=== PATIENT | male | born 1980 | race Caucasian/White ===

== ENCOUNTER 2020-09-04 08:09 | Day surgery (SDC) | payer BC ==
[2020-08-27 16:23] LABS: BASOPHILS % (AUTO) 0.3 % (0-1); EOSINOPHILS # (AUTO) 0.2 X10'3 (0-0.9); LYMPHOCYTES # (AUTO) 2.3 X10'3 (1.1-4.8); LYMPHOCYTES % (AUTO) 29.2 % (21-51); MEAN CORPUSCULAR HGB CONC 33.8 g/dL (33.0-36.5); MEAN CORPUSCULAR VOLUME 85.7 FL (78-98); MEAN PLATELET VOLUME 9.2 FL (7.4-10.4); MONOCYTES # (AUTO) 0.5 X10'3 (0-0.9); MONOCYTES % (AUTO) 5.9 % (2-12); NEUTROPHILS # (AUTO) 4.8 X10'3 (1.8-7.7); NEUTROPHILS % (AUTO) 61.6 % (42-75); PRE OP HEMATOCRIT 41.9 % (42.0-52.0); PRE OP HEMOGLOBIN 14.2 g/dL (14.0-17.9); PRE OP PLATELET COUNT 282 X10'3 (140-440); RED BLOOD COUNT 4.89 X10'6 (4.70-6.10); RED CELL DISTRIBUTION WIDTH 13.4 % (11.5-14.5)
[2020-08-27 16:36] LABS: ALBUMIN 4.4 G/DL (3.4-5.0); ALBUMIN/GLOBULIN RATIO 1.2 (1.1-1.5); ALKALINE PHOSPHATASE 182 IU/L (46-116); BLOOD UREA NITROGEN 11 MG/DL (7-18); BUN/CREATININE RATIO 13.3 (5.4-32.0); CALCIUM 9.9 MG/DL (8.5-10.1); CHLORIDE 105 MMOL/L (99-107); CREATININE 0.83 MG/DL (0.60-1.10); PRE OP ALT 67 U/L (30-65); PRE OP ANION GAP 10 (8-16); PRE OP AST 21 U/L (10-37); PRE OP BILIRUB, TOTAL 0.4 MG/DL (0.0-1.0); PRE OP GLUCOSE 96 MG/DL (70-104); PRE OP POTASSIUM 3.7 MMOL/L (3.4-5.1); PRE OP SODIUM 140 MMOL/L (135-145); TOTAL CARBON DIOXIDE 25.2 MMOL/L (24-32); TOTAL PROTEIN 8.1 G/DL (6.4-8.2); eGFR > 90 ML/MIN
[~2020-09-04] VITALS: Ht 177.8 cm; Wt 95.9 kg
[~2020-09-04 08:09] MED LIST: ACET-2006 PO; BUPIVAcaine/PF 2.5mg/ml (0.25%) 10ml vial ONE; ESZO2TAB PO; IBUP-24 PO; LIDOcaine 1% 30ml preserv. free vial ONE; LISD70CA PO; OXYC-521 PO; [UNRECOGNIZED DRUG - CODE] PO; clindamycin-Cleocin 900mg/D5W 50 ML IV ONE; famotidine 20mg tablet PO ONE; ringers solution, lacted 1,000 ML IV SCH
[2020-09-04] MEDS ORDERED: proCHLORperazine 10 MG/2 ml inj IV PRN (08:25)
[2020-09-04] MEDS ORDERED: ringers solution, lacted 1,000 ML IV SCH (08:25)
[2020-09-04] MEDS ORDERED: ondansetron/PF 4mg/2ml inj IV PRN (08:25)
[2020-09-04] MEDS ORDERED: meperidine/PF 25mg/ml syringe IV PRN ×3 (08:25)
[2020-09-04] MEDS ORDERED: morphine 4 MG/ML inj SYRINge IV PRN (08:25)
[2020-09-04] MEDS ORDERED: morphine 2 MG/ML inj. syringe IV PRN (08:25)
[2020-09-04 09:10] VITALS: BP 128/73
[2020-09-04 09:18] VITALS: BP 128/73
[2020-09-04] MEDS ORDERED: fentaNYL/PF 50MCG/1 ML 2ML syringe ONE (10:44)
[2020-09-04] MEDS ORDERED: MIDAZolam 5mg/5ml vial ONE (10:58)
[2020-09-04] MEDS ORDERED: ketorolac trometh. 30mg/ml inj. ONE (10:58)
[2020-09-04] MEDS ORDERED: propofol inj 20 ML IV ONE (11:15)
[2020-09-04] MEDS ORDERED: LIDOcaine 2% (20mg/ml) 5ml vial ONE (11:15)
[2020-09-04 11:35] VITALS: BP 122/65
--- NOTE | 2020-09-04 11:35 | NUR ---
Received from OR via JESSY , accompanied by Anesthesiologist JANAN and report given by Anesthesiolgist. PATIENT WITH 20G PIV IN LEFT UE RUNNING LR AT 100. DENIES PAIN AT THIS TIME. RIGHT WRIST DRESSING PRESENT AND IS CDI. VSS. + CAP REFILL TO FINGERS ON RIGHT UE Addendum: 09/04/20 at 1143 by Yoni Tse RN, RN Amended: Links added.
[2020-09-04 11:45] VITALS: BP 116/61
[2020-09-04 11:50] VITALS: BP 116/61
[2020-09-04 12:00] VITALS: BP 119/75
--- NOTE | 2020-09-04 12:05 | NUR ---
PATIENT AND FAMILY HAVE VERBALIZED UNDERSTANDING, OPPORTUNITY TO ASK QUESTIONS GIVEN AND PATIENT COMFORTABLE WITH DC. IV TAKEN OUT WITHOUT COMPLICATION. PATIENT HAS MET ALL DC CRITERIA FOR DC HOME. I HAVE REVIEWED D/C INSTRUCTIONS WITH PATIENT. OUT VIA WHEELCHAIR WHERE PATIENT WAS TAKEN HOME WITH ALL BELONGINGS. FAMILY GAVE PATIENT TRANSPORT HOME. AMBULATED. DENIES PAIN. SITES CDI TO RUE Addendum: 09/04/20 at 1229 by Yoni Tse RN, RN Amended: Links added.
== END 2020-09-04 12:05 | disposition home or self-care (01) ==
LOC: PAS 08:09
PROVIDERS: ATTEND Orthopaedic Surgery Hand Surgery
DX: Z47.2 Encounter for removal of internal fixation device (principal); F90.9 Attention-deficit hyperactivity disorder, unspecified type; E66.9 Obesity, unspecified; Z68.30 Body mass index [BMI] 30.0-30.9, adult; Z20.828 Contact with and (suspected) exposure to other viral communicable diseases; Z79.899 Other long term (current) drug therapy; Z72.89 Other problems related to lifestyle; F17.210 Nicotine dependence, cigarettes, uncomplicated; Z98.890 Other specified postprocedural states; Z88.0 Allergy status to penicillin
CPT/HCPCS: 20680; 36415; 80053; 82948; 85025; 87635; A6222; J1885; J2001; J2250; J2704; J3010; J3490; J7120; A4215; A4618; A6446; A6449; A7000